=== PATIENT | male | born 1965 | race Caucasian/White ===

== ENCOUNTER 2017-04-29 08:06 | Day surgery (SDC) | payer BC ==
[~2017-04-29] VITALS: Ht 172.7 cm; Wt 74.0 kg
[~2017-04-29 08:06] MED LIST: CEFAZOLIN 1,000 MG ONE; FENTANYL PF 100 MCG/2ML ONE; MIDAZOLAM 1 MG/ML, 2ML ONE; PROPOFOL 10 MG/ML, 20ML ONE; ROPIvacaine/PF 0.5%, 30 ML ONE; SODIUM CHLORIDE 0.9% PF 10ML ONE
[2017-04-29 08:31] VITALS: BP 126/89
[2017-04-29] MEDS ORDERED: LACTATED RINGERS 1,000 ML IV SCH (08:33)
[2017-04-29] MEDS ORDERED: [UNRECOGNIZED DRUG - REMARK] (08:56)
[2017-04-29] MEDS ORDERED: IRON (08:58)
[2017-04-29] MEDS ORDERED: [UNRECOGNIZED DRUG - OTHER] (08:58)
[2017-04-29] MEDS ORDERED: BENADRYL (08:58)
[2017-04-29] MEDS ORDERED: PLEASE ENTER HEIGHT AND WEIGHT MC SCH (09:00)
[2017-04-29] MEDS ORDERED: LIDOCAINE 1%, 50ML ONE (09:07)
[2017-04-29] MEDS ORDERED: BUPIVACAINE/PF 0.5% ONE (09:08)
[2017-04-29] MEDS ORDERED: KETOROLAC 30 MG/1 ML IV PRN (10:30)
[2017-04-29] MEDS ORDERED: PROMETHAZINE 25 MG/ML, 1ML IV PRN (10:30)
[2017-04-29] MEDS ORDERED: MEPERIDINE/PF 25MG/0.5ML IVPush PRN (10:30)
[2017-04-29] MEDS ORDERED: ACETAMINOPHEN 325 MG TABLET PO PRN (10:30)
[2017-04-29] MEDS ORDERED: FENTANYL PF 100 MCG/2ML IV PRN (10:30)
[2017-04-29] MEDS ORDERED: OXYcodone 5 MG/5 ML ORAL.SOL UDC PO PRN (10:30)
[2017-04-29] MEDS ORDERED: HYDROmorphone 1 MG/ML, 1ML IV PRN (10:30)
[2017-04-29] MEDS ORDERED: DIAZEPAM 5 MG/ML, 2ML IVPush PRN (10:30)
== END 2017-04-29 14:05 | disposition home or self-care (01) ==
LOC: OUT 08:06
PROVIDERS: ATTEND Orthopaedic Surgery Foot and Ankle Surgery
DX: M19.171 Post-traumatic osteoarthritis, right ankle and foot (principal); M92.51 Juvenile osteochondrosis of proximal tibia; F19.90 Other psychoactive substance use, unspecified, uncomplicated; D64.9 Anemia, unspecified; K21.9 Gastro-esophageal reflux disease without esophagitis; Z87.891 Personal history of nicotine dependence; Z88.1 Allergy status to other antibiotic agents
CPT/HCPCS: 27871; 73600; 76001; C1713; J0690; J2250; J2704; J2795; J3010; J3490; J7120